=== PATIENT | female | born 1990 | race Two or more races ===

== ENCOUNTER 2016-07-23 11:00 | Observation (INO) | payer SELFPAY ==
[~2016-07-23] VITALS: Ht 157.5 cm; Wt 90.7 kg
[2016-07-23] MEDS ORDERED: LACTATED RINGER'S 1,000 ML IV SCH (11:53)
[2016-07-23] MEDS ORDERED: LACTATED RINGER'S 1,000 ML IV ONE (11:53)
[2016-07-23] MEDS ORDERED: TERBUTALINE SULFATE 1 MG/ML 1ML VIAL SC SCH (12:00)
[2016-07-23 12:18] LABS: Basophils # (auto) 0 uL; Basophils % (auto) 0.3 % (0.0-2.0); Eosinophils # (auto) 0 uL; Eosinophils % (auto) 0.4 % (0.0-7.0); Hematocrit 37.8 % (36.0-46.0); Hemoglobin 12.2 g/dL (12.2-16.2); Lymphocytes # (auto) 1.4 uL; Lymphocytes % (auto) 13.8 % (10.0-50.0); Mean Corpuscular Hemoglobin 30.5 pg (28.0-32.0); Mean Corpuscular Hgb Conc. 32.3 g/dL (32.0-36.0); Mean Corpuscular Volume 94.4 fL (80.0-100.0); Monocytes # (auto) 0.7 uL; Monocytes % (auto) 6.4 % (0.0-12.0); Neutrophils # (auto) 8.3 uL; Neutrophils % (auto) 79.1 % (37.0-80.0); Platelet Count (auto) 336 10^3/uL (140-450); Red Cell Distribution Width 14.4 % (11.6-16.0); White Blood Cell 10.4 10^3/uL (4.4-10.8)
[2016-07-23 12:36] LABS: Urine Bilirubin Negative (Negative); Urine Blood Negative /uL (Negative); Urine Color Yellow (Yellow); Urine Glucose TRACE mg/dL (Normal); Urine Ketone Negative (Negative); Urine Mucus FEW (None Seen); Urine Nitrite Negative (Negative); Urine RBC 2 /hpf (0 - 4); Urine Squamous Epithelial Cell MOD /hpf (<5); Urine Urobilinogen Normal (Negative); Urine pH 5.5 (5.0-8.0)
[2016-07-23 12:38] LABS: INR 0.99 (0.9-1.15); Partial Thromboplastin Time 29.7 sec (22.64-33.71); Prothrombin Time 10.2 sec (9.37-12.3)
[2016-07-23 12:43] LABS: Albumin 2.7 g/dL (3.4-5.0); BUN/Creatinine Ratio 14.5; Calcium 8.9 mg/dL (8.5-10.1); Potassium 3.9 mmol/L (3.5-5.1); Uric Acid 3.7 mg/dL (2.6-6.0)
[2016-07-23 12:46] LABS: Bilirubin, Total 0.2 mg/dL (0.2-1.0); Total Protein 6.7 g/dL (6.4-8.2)
== END 2016-07-23 13:47 | disposition home or self-care (01) | DRG 781 ==
LOC: LDRP 11:00
PROVIDERS: ADMIT Obstetrics & Gynecology; ATTEND Obstetrics & Gynecology
DX: O62.9 Abnormality of forces of labor, unspecified (principal); O23.43 Unspecified infection of urinary tract in pregnancy, third trimester; Z3A.30 30 weeks gestation of pregnancy; O26.893 Other specified pregnancy related conditions, third trimester; R51 Headache
CPT/HCPCS: 36415; 76805; 80053; 81001; 84550; 85025; 85610; 85730; 86592; 86703; 86762; 86850; 86900; 86901; 87340; 96360; 96361; 96372; G0378; G0434; J3105; 59025; 81002; 96365; 96366

== ENCOUNTER 2016-09-02 00:50 | Observation (INO) | payer MEDICAID ==
[~2016-09-02] VITALS: Ht 157.5 cm; Wt 85.7 kg
[2016-09-02] MEDS ORDERED: LACTATED RINGER'S 1,000 ML IV ONE (01:07)
[2016-09-02] MEDS: TERBUTALINE SULFATE 1 MG/ML 1ML VIAL SC SCH ×3 (01:16→02:17)
[2016-09-02] MEDS ORDERED: cefTRIAXone 1GM/50ML D5W 50 ML IV ONE ×2 (01:37→01:45)
[2016-09-02 02:06] LABS: Urine Bilirubin Negative (Negative); Urine Blood Negative /uL (Negative); Urine Color Yellow (Yellow); Urine Glucose Normal (Normal); Urine Nitrite Negative (Negative); Urine RBC 2 /hpf (0 - 4); Urine Squamous Epithelial Cell FEW /hpf (<5); Urine Urobilinogen Normal (Negative)
[2016-09-02 02:07] LABS: Urine Ketone 1+ (Negative)
== END 2016-09-02 03:50 | disposition home or self-care (01) | DRG 566 ==
LOC: LDRP 00:50
PROVIDERS: ADMIT Specialist; ATTEND Specialist
DX: O24.419 Gestational diabetes mellitus in pregnancy, unspecified control (principal); O26.893 Other specified pregnancy related conditions, third trimester; R10.9 Unspecified abdominal pain; Z3A.36 36 weeks gestation of pregnancy
CPT/HCPCS: 59025; 76818; 81001; 81002; 96361; 96365; 96372; G0378; J0696; J3105; 96366

== ENCOUNTER 2016-09-09 08:30 | Observation (INO) | payer OTHER ==
[~2016-09-09] VITALS: Ht 157.5 cm; Wt 83.9 kg
[2016-09-09] MEDS ORDERED: PREN1CAP20 PO (08:52)
== END 2016-09-09 10:25 | disposition home or self-care (01) | DRG 566 ==
LOC: LDRP 08:30
PROVIDERS: ADMIT Specialist; ATTEND Specialist
DX: O76 Abnormality in fetal heart rate and rhythm complicating labor and delivery (principal); O62.9 Abnormality of forces of labor, unspecified; Z3A.37 37 weeks gestation of pregnancy
CPT/HCPCS: 59025; 76818; 81002; 82962; G0378

== ENCOUNTER 2016-09-12 06:15 | Observation (INO) | payer MEDICAID ==
[~2016-09-12 06:15] MED LIST: PREN1CAP20 PO
== END 2016-09-12 09:15 | disposition home or self-care (01) | DRG 566 ==
LOC: LDRP 06:15
PROVIDERS: ADMIT Obstetrics & Gynecology; ATTEND Obstetrics & Gynecology
DX: O24.410 Gestational diabetes mellitus in pregnancy, diet controlled (principal); O62.9 Abnormality of forces of labor, unspecified; Z3A.27 27 weeks gestation of pregnancy
CPT/HCPCS: 59025; 81002; 82948; 82962; G0378

== ENCOUNTER 2016-09-13 20:41 | Observation (INO) | payer MEDICAID, OTHER | END 2016-09-13 22:00 | disposition home or self-care (01) | DRG 566 | LOC: INTOOBSV 20:41 → LDRP 20:41 | PROVIDERS: ADMIT Obstetrics & Gynecology; ATTEND Obstetrics & Gynecology | DX: O26.893 Other specified pregnancy related conditions, third trimester (principal); R51 Headache; Z3A.39 39 weeks gestation of pregnancy | CPT/HCPCS: 59025; 76818; 81002; G0378 ==

== ENCOUNTER 2016-09-16 05:37 | Observation (INO) | payer MEDICAID, OTHER | END 2016-09-16 06:35 | disposition home or self-care (01) | DRG 566 | LOC: LDRP 05:37 | PROVIDERS: ADMIT Specialist; ATTEND Specialist | DX: O62.9 Abnormality of forces of labor, unspecified (principal); O26.893 Other specified pregnancy related conditions, third trimester; R10.9 Unspecified abdominal pain; M54.9 Dorsalgia, unspecified; Z3A.39 39 weeks gestation of pregnancy | CPT/HCPCS: 59025; 81002; G0378 ==

== ENCOUNTER 2016-09-21 19:56 | Observation (INO) | payer OTHER | END 2016-09-21 22:01 | disposition home or self-care (01) | DRG 566 | LOC: LDRP 19:56 | PROVIDERS: ADMIT Specialist; ATTEND Specialist | DX: O24.419 Gestational diabetes mellitus in pregnancy, unspecified control (principal); O48.0 Post-term pregnancy; O62.9 Abnormality of forces of labor, unspecified; Z3A.40 40 weeks gestation of pregnancy | CPT/HCPCS: 59025; 76818; 81002; G0378 ==

== ENCOUNTER 2016-09-23 16:20 | Observation (INO) | payer OTHER | END 2016-09-23 17:20 | disposition home or self-care (01) | DRG 566 | LOC: LDRP 16:20 | PROVIDERS: ADMIT Specialist; ATTEND Specialist | DX: O62.9 Abnormality of forces of labor, unspecified (principal); O24.410 Gestational diabetes mellitus in pregnancy, diet controlled; Z3A.39 39 weeks gestation of pregnancy | CPT/HCPCS: 82962; G0378; 59025; 81002 ==